=== PATIENT | female | born 1995 | race Caucasian/White ===

== ENCOUNTER 2021-11-10 15:48 | Day surgery (SDC) | payer OTHER ==
[2021-11-10 16:22] VITALS: BMI 43.2
[2021-11-10] MEDS ORDERED: hydrALAZINE 20 MG/ML VIAL SLOW IVP PRN (16:28)
[2021-11-10 16:55] LABS: #Eosinphils 0.1 10x3/uL (0.0-0.5); #Monocytes 0.7 10x3/uL (0.0-1.1); #Neutrophils 10.6 10x3/uL (1.5-8.4); %Basophils 0.3 % (0.0-2.0); %Eosinophils 0.5 % (0.0-6.0); %Lymphocytes 11.3 % (18.0-47.0); %Monocytes 5.5 % (0.0-10.0); %Neutrophils 81.8 % (40.0-75.0); Hemoglobin 10.5 g/dL (12.0-15.5); Mean Corpuscular HGB CONC 33.8 g/dL (32.0-36.0); Mean Corpuscular Hemoglobin 29.3 pg (27.0-33.0); Mean Corpuscular Volume 86.9 fl (81.6-98.3); Mean Platelet Volume 11.3 fl (7.4-10.4); Platelet Count 213 10x3/uL (150-450); RBC Distribution Width 13.6 % (11.5-14.5); Red Blood Cell (RBC) Count 3.58 10x6/uL (3.90-5.03)
[2021-11-10 17:09] LABS: ALT (SGPT) 10 U/L (8-55); AST (SGOT) 21 U/L (5-34); Alkaline Phosphatase 101 U/L (40-110); Anion Gap 9 mmol/L (10-20); BUN (Urea Nitrogen) 9 mg/dL (7.0-18.7); Bilirubin, Total 0.5 mg/dL (0.2-1.2); Calc. Creatinine Clearance 263 mL/min (70-130); Calcium 8.7 mg/dL (7.8-10.44); Carbon Dioxide 20 mmol/L (22-29); Chloride 98 mmol/L (98-107); Estimated GFR 128; Glucose 165 mg/dL (70-105); Potassium 3.2 mmol/L (3.5-5.1); Sodium 124 mmol/L (136-145)
== END 2021-11-10 17:39 | disposition home or self-care (01) ==
LOC: CSHLD/OP 15:48
PROVIDERS: ATTEND Obstetrics & Gynecology
DX: O10.913 Unspecified pre-existing hypertension complicating pregnancy, third trimester (principal); Z3A.37 37 weeks gestation of pregnancy
CPT/HCPCS: 36415; 80053; 82570; 85025

== ENCOUNTER 2021-11-17 09:14 | Outpatient (CLI) | payer OTHER | END 2021-11-17 09:15 | disposition home or self-care (01) | LOC: CSHLAB 09:14 | PROVIDERS: ATTEND Advanced Practice Midwife | DX: Z20.822 Contact with and (suspected) exposure to COVID-19 (principal) | CPT/HCPCS: 87811 ==

== ENCOUNTER 2021-11-21 19:00 | Inpatient (IN) | payer OTHER ==
[~2021-11-21 19:00] MED LIST: Acetaminophen 500 MG TAB PO PRN; Butorphanol Tartrate 1 MG/ML VIAL SLOW IVP PRN; Carboprost 250 MCG/ML AMP IM PRN; Diphenoxylate HCl/Atropine Tablet PO PRN; HYDROcodone/Acetaminophen 5/325 mg Tablet PO PRN; Ibuprofen 800 MG TAB PO PRN; Lidocaine 1% (PF) 30 ML VIAL SC PRN; Methylergonovine 0.2 MG/ML VIAL IM PRN; Misoprostol 100 MCG TAB VAG SCH; Misoprostol 200 MCG TAB PR PRN; NS w/ Oxytocin 30 units 500 ML IV SCH; Ondansetron PF 4 MG/2 ML Vial IVP PRN; Promethazine HCl 25 MG/ML VIAL IM PRN; hydrALAZINE 20 MG/ML VIAL SLOW IVP PRN
[2021-11-21 23:35] VITALS: BMI 42.9
[2021-11-21] MEDS ORDERED: NS w/ Oxytocin 30 units 500 ML IV SCH (23:59)
[2021-11-22 00:17] LABS: Hemoglobin 10.8 g/dL (12.0-15.5); Mean Corpuscular HGB CONC 32.9 g/dL (32.0-36.0); Mean Corpuscular Hemoglobin 29.1 pg (27.0-33.0); Mean Corpuscular Volume 88.4 fl (81.6-98.3); Mean Platelet Volume 10.9 fl (7.4-10.4); Platelet Count 243 10x3/uL (150-450); RBC Distribution Width 14.1 % (11.5-14.5); Red Blood Cell (RBC) Count 3.71 10x6/uL (3.90-5.03); White Blood Cell (WBC) Count 12.1 10x3/uL (3.5-10.5)
[2021-11-22 06:48] LABS: Hep B Surf Ag Non-Reactive S/CO (NonReactive); Syphilis Antibody Nonreactive (Nonreactive); Syphilis Antibody Index 0.04 S/CO (<1.00 Non-Reactive)
[2021-11-22 08:30] LABS: HBSAg Index 0.18 S/CO (0-0.99)
[2021-11-22] MEDS ORDERED: Fentanyl 2 mcg/Bup 0.1% Cadd 100 ML ONE (09:21)
[2021-11-22] MEDS: Lactated Ringer's 1,000 ML IV SCH ×2 (10:17→17:10)
[2021-11-22] MEDS ORDERED: Moisturizing Cream (Eucerin) 113 GM JAR TOP PRN (10:24)
[2021-11-22] MEDS ORDERED: Acetaminophen 325 MG TAB PO PRN (10:24)
[2021-11-22] MEDS ORDERED: diphenhydrAMINE 50 MG/ML VIAL IVP PRN (10:24)
[2021-11-22] MEDS ORDERED: Naloxone HCl 0.4 mg/ml Vial IVP PRN ×2 (10:24)
[2021-11-22] MEDS ORDERED: Promethazine HCl 25 MG/ML VIAL IM PRN (10:24)
[2021-11-22] MEDS ORDERED: Lactated Ringer's 500 ML IV PRN (10:24)
[2021-11-22] MEDS ORDERED: Ondansetron PF 4 MG/2 ML Vial IVP PRN ×2 (10:24→14:45)
[2021-11-22] MEDS ORDERED: ePHEDrine Sulfate 50 MG/10 ML VIAL SLOW IVP PRN (10:24)
[2021-11-22] MEDS ORDERED: Fentanyl 2 mcg/Bupivacaine 0.1% Cassette 100 ML EPIDURAL SCH (10:30)
[2021-11-22] MEDS ORDERED: Communication Order-Pharmacy FS SCH (10:30)
[2021-11-22] MEDS ORDERED: Preparation H Ointment 28 GM TUBE PR PRN (14:45)
[2021-11-22] MEDS ORDERED: Bisacodyl 10 MG SUPP PR PRN (14:45)
[2021-11-22] MEDS ORDERED: hydrALAZINE 20 MG/ML VIAL SLOW IVP PRN (14:45)
[2021-11-22] MEDS ORDERED: Methylergonovine 0.2 MG/ML VIAL IM PRN (14:45)
[2021-11-22] MEDS ORDERED: NS w/ Oxytocin 30 units 500 ML IV SCH (14:45)
[2021-11-22] MEDS ORDERED: Misoprostol 200 MCG TAB VAG PRN (14:45)
[2021-11-22] MEDS ORDERED: Lanolin Ointment 7 GM TUBE TOP PRN (14:45)
[2021-11-22] MEDS ORDERED: Milk Of Magnesia 30 ML UDCUP PO PRN (14:45)
[2021-11-22] MEDS ORDERED: Benzocaine-Menthol 82.5 ML CAN TOP PRN (14:45)
[2021-11-22] MEDS: Ferrous Sulfate 325 MG TAB PO SCH (16:26)
[2021-11-22] MEDS: Docusate 100 MG CAP PO SCH (21:20)
[2021-11-22] MEDS: Ibuprofen 800 MG TAB PO SCH (21:20)
[2021-11-23] MEDS: Ibuprofen 800 MG TAB PO SCH ×2 (05:48→14:17)
[2021-11-23] MEDS: Ferrous Sulfate 325 MG TAB PO SCH (07:14)
[2021-11-23] MEDS ORDERED: Prenatal Vitamin 1 TAB PO SCH (09:00)
[2021-11-23] MEDS: Docusate 100 MG CAP PO SCH (09:02)
[2021-11-23] MEDS ORDERED: HYDROcodone/Acetaminophen 5/325 mg Tablet PO PRN ×2 (11:48)
[2021-11-23 11:50] VITALS: BP 128/66; TEMP 98.1
== END 2021-11-23 15:15 | disposition home or self-care (01) | DRG 807 ==
LOC: CSHLD 23:02 → CSHPP 11-22 15:55
PROVIDERS: ADMIT Obstetrics & Gynecology; ATTEND Obstetrics & Gynecology
PROC: 10E0XZZ Delivery of Products of Conception, External Approach (ICD-10-PCS; principal; 2021-11-22)
PROC: 10907ZC Drainage of Amniotic Fluid, Therapeutic from Products of Conception, Via Natural or Artificial Opening (ICD-10-PCS; 2021-11-22)
DX: O99.214 Obesity complicating childbirth (principal); Z37.0 Single live birth; Z3A.39 39 weeks gestation of pregnancy; O26.893 Other specified pregnancy related conditions, third trimester; O69.2XX0 Labor and delivery complicated by other cord entanglement, with compression, not applicable or unspecified; E66.01 Morbid (severe) obesity due to excess calories; Z67.41 Type O blood, Rh negative
CPT/HCPCS: 36415; 51702; 85027; 86780; 86850; 86900; 86901; 87340; J2590; J7120

== ENCOUNTER 2022-01-11 09:30 | Emergency (ER) | payer OTHER ==
[2022-01-11 10:07] LABS: Bilirubin Neg (Negative); Blood, Urine 250 (Negative); Clarity Cloudy (Clear); Glucose, Urine (Dipstick) Normal (Negative); Ketone, Urine Negative (Negative); Leukocyte 25 (Negative); Nitrite Negative (Negative); Protein, Urine (Dipstick) 30 mg/dl (Neg-Trace); Specific Gravity, Urine 1.015 (1.002-1.036); Urobilinogen Normal mg/dL (Less than 2)
[2022-01-11 10:36] LABS: Bacteria/HPF Rare-Few HPF (None Seen); RBC/HPF 21-50 HPF (0-3); Squamous Epithelial 0-3 HPF (0-3); WBC/HPF 0-3 HPF (0-3)
[2022-01-11 10:46] LABS: #Monocytes 0.4 10x3/uL (0.0-1.1); #Neutrophils 4.3 10x3/uL (1.5-8.4); %Basophils 0.6 % (0.0-2.0); %Eosinophils 0.6 % (0.0-6.0); %Lymphocytes 23.3 % (18.0-47.0); %Monocytes 7.1 % (0.0-10.0); %Neutrophils 68.2 % (40.0-75.0); Hemoglobin 12.7 g/dL (12.0-15.5); Mean Corpuscular HGB CONC 32.2 g/dL (32.0-36.0); Mean Corpuscular Hemoglobin 28.5 pg (27.0-33.0); Mean Corpuscular Volume 88.5 fl (81.6-98.3); Mean Platelet Volume 10.8 fl (7.4-10.4); Platelet Count 233 10x3/uL (150-450); RBC Distribution Width 13.4 % (11.5-14.5); Red Blood Cell (RBC) Count 4.45 10x6/uL (3.90-5.03); White Blood Cell (WBC) Count 6.2 10x3/uL (3.5-10.5)
[2022-01-11 11:04] LABS: BHCG - Serum Negative (NEGATIVE); Pregs Control Background? CLEAR/WHITE (CLR/WHITE); Pregs Control Bar Appear? YES (CONTROL BAR)
[2022-01-11 11:12] LABS: ALT (SGPT) 29 U/L (8-55); AST (SGOT) 24 U/L (5-34); Albumin 4.2 g/dL (3.5-5.0); Alkaline Phosphatase 83 U/L (40-110); Anion Gap 12 mmol/L (10-20); BUN (Urea Nitrogen) 20 mg/dL (7.0-18.7); Bilirubin, Total 1.1 mg/dL (0.2-1.2); Calc. Creatinine Clearance 0 mL/min (70-130); Calcium 9.5 mg/dL (7.8-10.44); Carbon Dioxide 27 mmol/L (22-29); Chloride 105 mmol/L (98-107); Estimated GFR 110; Glucose 83 mg/dL (70-105); Potassium 4.2 mmol/L (3.5-5.1); Protein, Total 7.2 g/dL (6.0-8.3); Sodium 140 mmol/L (136-145)
== END 2022-01-11 12:10 | disposition home or self-care (01) ==
LOC: CSHERS 09:30
DX: N13.2 Hydronephrosis with renal and ureteral calculous obstruction (principal)
CPT/HCPCS: 36415; 74176; 80053; 81003; 81015; 84703; 85025